=== PATIENT | female | born 1985 | race Caucasian/White ===

== ENCOUNTER 2016-11-15 11:43 | Emergency (ER) | payer OTHER ==
[2016-11-15 12:27] LABS: % IMMATURE GRANULYOCYTES 0.2 % (0.0-1.1); ABSOLUTE IMMATURE GRANULOCYTES 0.01 10^3/uL (0.00-0.10); ADD DIFF? NO; ADD MORPH? NO; ADD SCAN? NO; ATYPICAL LYMPHOCYTE FLAG 0 (0-99); FRAGMENT RBC FLAG 0 (0-99); HEMATOCRIT 39.5 % (38.0-47.0); HEMOGLOBIN 13.7 g/dL (12.6-16.3); LEFT SHIFT FLG 0 (0-99); LIPEMIA HEMOLYSIS FLAG 90 (0-99); MEAN CELL HEMOGLOBIN CONCENTR. 34.7 g/dL (32.4-36.7); MEAN CELL VOLUME 86.4 fL (81.5-99.8); PLATELET CLUMPS FLAG 0 (0-99); PLATELET COUNT 240 10^3/uL (150-400); RED BLOOD CELL COUNT 4.57 10^6/uL (4.18-5.33); RED CELL DISTRIBUTION WIDTH 13.3 % (11.5-15.2)
--- NOTE | 2016-11-15 12:30 | UCPHY ---
H & P Time Seen by Provider: 11/15/16 11:55 Patient Type: New HPI/ROS: 31-year-old female presents complaining left foot pain, she states she was at a [employer] party 4 days ago and was stepped on by her heel has had bruising and pain with weight-bearing at her distal foot. She states also that night she had been drinking quite heavily and had 1 episode of vomiting that looked like bile with black ink in it as well. She is concerned because she has a history peptic ulcer disease last acting up in the year 2003. She denies nausea or vomiting today she denies fevers or chills she has some mild achy left upper quadrant pain today. She was able to eat breakfast without any difficulty. She denies constipation diarrhea or blood in her stool. Review of systems As per HPI General no fever no chills no weakness HEENT no eye pain no eye discharge. No eye redness, no sore throat Respiratory no cough, no shortness of breath Cardiac no chest pain, no peripheral edema GI positive abdominal pain, no diarrhea, no constipation, no nausea, no vomiting Positive 1 episode of dark emesis 4 days ago no flank pain, no hematuria, no dysuria Musculoskeletal no myalgias, no joint pain, positive foot pain Heme no easy bruising, no easy bleeding Endo no polyuria, no polydipsia Skin no rashes, no pruritus Neuro no syncope, no dizziness, no headaches Psych is no suicidal ideation, no homicidal ideation Past Medical/Surgical History: Peptic ulcer disease, hypothyroidism Social History: Drinks alcohol socially, denies excessive drug use Smoking Status: Never smoked Physical Exam: 31-year-old female alert and oriented no acute distress nontoxic appearance afebrile HEENT atraumatic normocephalic, extraocular muscles intact, anicteric Oropharynx negative for erythema negative exudate, tolerating her own secretions Neck supple no meningismus Lungs clear to auscultation bilaterally Heart regular rate and rhythm without murmur rub or gallop Abdomen nondistended normoactive bowel sounds soft, mild left upper quadrant tenderness no guarding no rebound no pulsatile mass Back no CVA tenderness, no step-offs, no spinal tenderness Extremities no cyanosis clubbing or edema Left foot with bruising to distal dorsal middle foot, full range of motion of digits, good capillary refill, no laxity Neuro alert and oriented, no focal deficits Constitutional: Initial Vital Signs Temperature (C) 36.7 C 11/15/16 11:55 Heart Rate 79 11/15/16 11:55 Respiratory Rate 20 11/15/16 11:55 Blood Pressure 132/84 H 11/15/16 11:55 O2 Sat (%) 95 11/15/16 11:55 O2 Delivery Mode Room Air Allergies/Adverse Reactions: No Known Allergies Allergy (Verified 11/15/16 11:59) Home Medications: Medication Instructions Recorded Levothyroxine 11/15/16 Medical Decision Making - Diagnostics Imaging Results: Imaging Impressions Foot X-Ray 11/15/16 12:05 Impression: No fracture identified. ED Course/Re-evaluation: Patient seen and evaluated for foot injury and concern about 1 episode of dark emesis Differential diagnosis considered Left foot, left foot fracture left foot contusion Dark emesis-gastritis, pancreatitis, cholecystitis CBC, CMP, lipase all within normal limits, no evidence for pancreatitis Impression Left foot contusion Gastritis Plan Nexium for gastritis as well as follow up with primary care physician Foot contusion rest ice elevate - Data Points Laboratory Results: Laboratory Results 11/15/16 12:22 11/15/16 12:22 11/15/16 11/15/16 12:22 12:22 WBC 6.36 10^3/uL 10^3/uL (3.80-9.50) RBC 4.57 10^6/uL 10^6/uL (4.18-5.33) Hgb 13.7 g/dL g/dL (12.6-16.3) Hct 39.5 % % (38.0-47.0) MCV 86.4 fL fL (81.5-99.8) MCH 30.0 pg pg (27.9-34.1) MCHC 34.7 g/dL g/dL (32.4-36.7) RDW 13.3 % % (11.5-15.2) Plt Count 240 10^3/uL 10^3/uL (150-400) MPV 10.0 fL fL (8.7-11.7) Neut % (Auto) 45.8 % % (39.3-74.2) Lymph % (Auto) 41.2 % % (15.0-45.0) [place] % (Auto) 8.2 % % (4.5-13.0) Eos % (Auto) 4.1 % % (0.6-7.6) Baso % (Auto) 0.5 % % (0.3-1.7) Nucleat RBC Rel Count 0.0 % % (0.0-0.2) Absolute Neuts (auto) 2.92 10^3/uL 10^3/uL (1.70-6.50) Absolute Lymphs (auto) 2.62 10^3/uL 10^3/uL (1.00-3.00) Absolute Monos (auto) 0.52 10^3/uL 10^3/uL (0.30-0.80) Absolute Eos (auto) 0.26 10^3/uL 10^3/uL (0.03-0.40) Absolute Basos (auto) 0.03 10^3/uL 10^3/uL (0.02-0.10) Absolute Nucleated RBC 0.00 10^3/uL 10^3/uL (0-0.01) Immature Gran % 0.2 % % (0.0-1.1) Immature Gran # 0.01 10^3/uL 10^3/uL (0.00-0.10) Sodium 141 mEq/L mEq/L (134-144) Potassium 4.0 mEq/L mEq/L (3.5-5.2) Chloride 105 mEq/L mEq/L (97-110) Carbon Dioxide 24 mEq/l mEq/l (22-31) Anion Gap 12 mEq/L mEq/L (8-16) BUN 9 mg/dL mg/dL (7-23) Creatinine 0.7 mg/dL mg/dL (0.6-1.0) Estimated GFR > 60 Glucose 87 mg/dL mg/dL (70-100) Calcium 8.6 mg/dL mg/dL (8.5-10.4) Total Bilirubin 0.7 mg/dL mg/dL (0.1-1.4) AST 25 IU/L IU/L (14-46) ALT 38 IU/L IU/L (9-52) Alkaline Phosphatase 71 IU/L IU/L (38-126) Total Protein 6.7 g/dL g/dL (6.3-8.2) Albumin 3.7 g/dL g/dL (3.5-5.0) Lipase 65.0 IU/L IU/L (23-300) Departure - Departure Disposition: Home, Routine, Self-Care Clinical Impression: Contusion of left foot including toes, Gastritis Condition: Good Instructions: Gastritis (ED), Diet for Stomach Ulcers and Gastritis (ED), Foot Contusion (ED) Additional Instructions: Nexium or the equivalent daily until follow-up with your primary care physician. Referrals: Kathy Birch MD [Primary Care Provider] - As per Instructions - PQRS PQRS Measurement: na
[2016-11-15 12:47] LABS: ALANINE AMINOTRANSFERASE 38 IU/L (9-52); ALBUMIN 3.7 g/dL (3.5-5.0); ALKALINE PHOSPHATASE 71 IU/L (38-126); ANION GAP 12 mEq/L (8-16); ASPARTATE AMINOTRANSFERASE 25 IU/L (14-46); BILIRUBIN,TOTAL 0.7 mg/dL (0.1-1.4); CALCIUM 8.6 mg/dL (8.5-10.4); CARBON DIOXIDE 24 mEq/l (22-31); CHLORIDE 105 mEq/L (97-110); CREATININE 0.7 mg/dL (0.6-1.0); GLOMERULAR FILTRATION RATE > 60; GLUCOSE 87 mg/dL (70-100); SODIUM 141 mEq/L (134-144); TOTAL PROTEIN 6.7 g/dL (6.3-8.2)
[2016-11-15 13:25] VITALS: BP 127/96; PULSE 88; RESP 16; TEMP 97.3; O2SAT 94
== END 2016-11-15 13:25 | disposition home or self-care (01) ==
LOC: CED 11:43
DX: K29.70 Gastritis, unspecified, without bleeding (principal); S90.32XA Contusion of left foot, initial encounter; W50.0XXA Accidental hit or strike by another person, initial encounter; Y93.41 Activity, dancing; Y92.89 Other specified places as the place of occurrence of the external cause; Y99.8 Other external cause status
CPT/HCPCS: 73630-PO; 80053-PO; 83690-PO; 85025-PO; G0463-PO

== ENCOUNTER → 2018-09-20 | Outpatient (CLI) | payer OTHER | LOC: FIMAGING 11:10 ==